=== PATIENT | male | born 1935 | race Caucasian/White ===

== ENCOUNTER 2016-07-01 10:51 | Outpatient (CLI) | payer MEDICARE, OTHER | END 2016-07-01 10:52 | disposition home or self-care (01) | DX: G47.33 Obstructive sleep apnea (adult) (pediatric) (principal) | CPT/HCPCS: 99214; G0463 ==

== ENCOUNTER 2016-09-02 08:56 | Outpatient (CLI) | payer MEDICARE, OTHER | END 2016-09-02 08:57 | disposition home or self-care (01) | LOC: SC 08:56 | PROVIDERS: ATTEND Nurse Practitioner Family | DX: G47.33 Obstructive sleep apnea (adult) (pediatric) (principal) | CPT/HCPCS: 99214; G0463; 99212 ==

== ENCOUNTER 2016-11-03 08:50 | Outpatient (CLI) | payer MEDICARE, OTHER | END 2016-11-03 08:51 | disposition home or self-care (01) | LOC: SC 08:50 | PROVIDERS: ATTEND Nurse Practitioner Family | DX: G47.33 Obstructive sleep apnea (adult) (pediatric) (principal) | CPT/HCPCS: 99214; G0463; 99212 ==

== ENCOUNTER 2017-01-13 10:50 | Outpatient (CLI) | payer MEDICARE, OTHER ==
[~2017-01-13 10:50] MED LIST: IOPAMIDOL-300 100 ML VIAL ONE
[2017-01-13] MEDS ORDERED: IOPAMIDOL-300 100 ML VIAL IVP ONE (12:03)
--- NOTE | 2017-01-14 09:56 | CT Report ---
ABDOMEN CT: 01/13/2017 COMPARISON: None. INDICATION: Unspecified hematuria. TECHNIQUE: Multiphase axial imaging of the abdomen at 5 mm using 100 mL Isovue-300. No oral contras t. Coronal and sagittal reformats. FINDINGS: Cardiac pacing leads are noted. There are atherosclerotic calcifications of the aorta and coronary arteries. There is mild dependent atelectasis at the lung bases. The liver is normal in contour without masses. The spleen, pancreas, and adrenal glands are unremark able. There are multiple colon diverticula without evidence of diverticulitis. The appendix appears grossl y unremarkable. There is an exophytic cyst at the superior right kidney, simple appearing and measures 4.3 cm. No urologic stones are demonstrated. There are a few other low-attenuating foci in the kidneys, too small to characterize. No filling defects are seen on delayed excretory images. Left hip prosthesis is noted. No bone lesions are seen. Soft tissues appear grossly unremarkable in other regards. IMPRESSION: THERE ARE NO CT FINDINGS TO SUGGEST A CAUSE OF HEMATURIA. In accordance with CT protocol optimization, one or more of the following dose reduction techniques w ere utilized for this exam: automated exposure control, adjustment of mA and/or KV based on patient size, or use of iterative reconstructive technique. JOB #: [id number] EXT JOB #:[id number]
== END 2017-01-13 10:51 | disposition home or self-care (01) ==
LOC: DI 10:50
PROVIDERS: ATTEND Family Medicine
DX: R31.9 Hematuria, unspecified (principal); Z95.0 Presence of cardiac pacemaker
CPT/HCPCS: 74178; Q9967

== ENCOUNTER 2017-07-28 15:27 | Outpatient (CLI) | payer MEDICARE, OTHER | END 2017-07-28 15:28 | disposition home or self-care (01) | LOC: SC 15:27 | PROVIDERS: ATTEND Nurse Practitioner Family | DX: G47.33 Obstructive sleep apnea (adult) (pediatric) (principal) | CPT/HCPCS: 99214; G0463; 99212 ==

== ENCOUNTER 2017-09-29 08:46 | Outpatient (CLI) | payer MEDICARE, OTHER | END 2017-09-29 08:47 | disposition home or self-care (01) | LOC: SC 08:46 | PROVIDERS: ATTEND Nurse Practitioner Family | DX: G47.33 Obstructive sleep apnea (adult) (pediatric) (principal) | CPT/HCPCS: 99214; G0463; 99212 ==

== ENCOUNTER → 2018-01-26 | Outpatient (CLI) | payer MEDICARE, OTHER ==
[2018-01-26 12:24] LABS: BASOPHILS # (AUTO) 0.1 10^3/uL (0.0-0.1); EOSINOPHILS # (AUTO) 0.1 10^3/uL (0.0-0.7); EOSINOPHILS % (AUTO) 2.2 %; HGB - HEMOGLOBIN 16.3 g/dL (14.0-18.0); LYMPHOCYTES # (AUTO) 1.8 10^3/uL (1.5-3.5); LYMPHOCYTES % (AUTO) 30.6 %; MEAN CORPUSCULAR HEMOGLOBIN 32.9 pg (27.0-31.0); MEAN CORPUSCULAR HGB CONC 34.7 g/dL (32.0-36.0); MEAN CORPUSCULAR VOLUME 94.8 fL (80.0-94.0); MEAN PLATELET VOLUME 10.4 fL (7.4-11.4); MONOCYTES # (AUTO) 0.5 10^3/uL (0.0-1.0); MONOCYTES % (AUTO) 8.6 %; NEUTROPHILS # (AUTO) 3.3 10^3/uL (1.5-6.6); NEUTROPHILS % (AUTO) 57.6 %; PLT - PLATELET COUNT 241 10^3/uL (130-450); RED BLOOD COUNT 4.95 10^6/uL (4.70-6.10); RED CELL DISTRIBUTION WIDTH 13.1 % (12.0-15.0); WHITE BLOOD COUNT 5.8 x10^3/uL (4.8-10.8)
[2018-01-26 12:51] LABS: ALBUMIN 4.2 g/dL (3.2-5.5); ALBUMIN/GLOBULIN RATIO 1.4 (1.0-2.2); ALKALINE PHOSPHATASE 70 IU/L (42-121); ALT ALANINE AMINOTRANSFERASE 35 IU/L (10-60); AST ASPARTATE AMINOTRANSFERASE 24 IU/L (10-42); BILIRUBIN,TOTAL 0.7 mg/dL (0.2-1.0); BUN - BLOOD UREA NITROGEN 16 mg/dL (6-20); CALCIUM 9.7 mg/dL (8.5-10.3); CARBON DIOXIDE - CO2 29 mmol/L (21-32); CHLORIDE 100 mmol/L (101-111); CHOL/HDL RATIO 8.4 (<5.0); CHOLESTEROL 251 mg/dL; GFR - MDRD 72 (>89); GLUCOSE 111 mg/dL (70-100); HDL CHOLESTEROL 30 mg/dL; LDL CHOLESTEROL,CALCULATED 149 mg/dL; SODIUM 136 mmol/L (135-145); TOTAL PROTEIN 7.1 g/dL (6.7-8.2); VLDL CHOLESTEROL 72 mg/dL
== END ==
LOC: LAB.WCP 07:02
PROVIDERS: ATTEND Family Medicine
DX: I10 Essential (primary) hypertension (principal); E78.5 Hyperlipidemia, unspecified
CPT/HCPCS: 36415; 80053; 80061; 83721; 85025

== ENCOUNTER → 2018-02-03 | Outpatient (CLI) | payer MEDICARE, OTHER ==
[2018-02-03 13:00] LABS: INR 1.1 (0.8-1.2); PT - PROTHROMBIN TIME 12.8 secs (9.9-12.6)
[2018-02-03 13:18] LABS: CHOL/HDL RATIO 6.8 (<5.0); CHOLESTEROL 224 mg/dL; HDL CHOLESTEROL 33 mg/dL; LDL CHOLESTEROL,CALCULATED 142 mg/dL; LDL/HDL RATIO 4.3 (<3.6); VLDL CHOLESTEROL 49 mg/dL
== END ==
LOC: LAB.WCP 07:17
PROVIDERS: ATTEND Family Medicine
DX: I48.0 Paroxysmal atrial fibrillation (principal); Z79.01 Long term (current) use of anticoagulants; E78.5 Hyperlipidemia, unspecified
CPT/HCPCS: 36415; 80061; 83721; 85610

== ENCOUNTER 2018-03-04 08:00 | Outpatient (CLI) | payer MEDICARE, OTHER ==
[2018-03-04 13:45] LABS: CHOL/HDL RATIO 4.3 (<5.0); CHOLESTEROL 145 mg/dL; HDL CHOLESTEROL 34 mg/dL; LDL CHOLESTEROL,CALCULATED 76 mg/dL; LDL/HDL RATIO 2.2 (<3.6); VLDL CHOLESTEROL 35 mg/dL
== END 2018-03-04 23:59 ==
LOC: LAB.WCP 08:00
PROVIDERS: ATTEND Family Medicine
DX: E78.5 Hyperlipidemia, unspecified (principal)
CPT/HCPCS: 36415; 80061; 83721

== ENCOUNTER 2018-09-16 08:00 | Outpatient (CLI) | payer MEDICARE, OTHER | END 2018-09-16 08:01 | disposition home or self-care (01) | LOC: LAB.WCP 08:00 | PROVIDERS: ATTEND Family Medicine | DX: I48.0 Paroxysmal atrial fibrillation (principal); Z79.01 Long term (current) use of anticoagulants ==

== ENCOUNTER 2018-09-30 08:00 | Outpatient (CLI) | payer MEDICARE, OTHER | END 2018-09-30 08:01 | disposition home or self-care (01) | LOC: LAB.WCP 08:00 | PROVIDERS: ATTEND Family Medicine | DX: I48.0 Paroxysmal atrial fibrillation (principal); Z79.01 Long term (current) use of anticoagulants ==

== ENCOUNTER 2018-10-14 08:00 | Outpatient (CLI) | payer MEDICARE, OTHER | END 2018-10-14 08:01 | disposition home or self-care (01) | LOC: LAB.WCP 08:00 | PROVIDERS: ATTEND Family Medicine | DX: I48.0 Paroxysmal atrial fibrillation (principal); Z79.01 Long term (current) use of anticoagulants ==

== ENCOUNTER 2018-11-11 08:00 | Outpatient (CLI) | payer MEDICARE, OTHER | END 2018-11-11 23:59 | disposition home or self-care (01) | LOC: LAB.WCP 08:00 | PROVIDERS: ATTEND Family Medicine | DX: I48.0 Paroxysmal atrial fibrillation (principal); Z79.01 Long term (current) use of anticoagulants ==

== ENCOUNTER 2018-11-29 09:48 | Outpatient (CLI) | payer MEDICARE, OTHER ==
--- NOTE | 2018-11-29 10:27 | SLEEP CARE CONSULTATION ---
Information from patient questionnaire entered by Amairani Salamanca. I have reviewed and concur with the information entered by Amairani Salamanca. This document represents the service I personally performed and the decisions made by me, Dung Daniels MD, [facility]. History of Present Illness Previous diagnosis: Moderate, Obstructive Sleep Apnea-Hypopnea Syndrome AHI: 27.5 Reason for CPAP/BiPAP follow up: annual Equipment type: CPAP Equipment obtained from: [employer] Prior sleep studies: Yes Year and Where: 2015 [facility]EP [facility] HPI additional information: HPI: Mr. Renner returned today for annual follow up of nasal CPAP therapy. He was diagnosed to have moderate obstructive sleep apnea-hypopnea syndrome. The patient wears nasal pillows and likes them. He reports using the device nightly and all through the night. The compliance report shows usage in 179 nights out of the past 180 nights, averaging 7.1 hours a night. He complained of no particular problem with the device such as soreness on the face, dry nose, epistaxis, nasal congestion or headache. He thinks that the pressure of 8 11 cmH2O is comfortable. On the CPAP therapy he notices improvement in his sleep quality, and that he wakes up feeling fresher in the morning and more awake/alert during the day. His notices no snore at all. The average residual AHI is 7.4; and average time in large leak per day is 2 hours. The 90th percentile pressure is 9.2 cmH2O. CPAP Compliance Data - Data Reviewed with Patient Average duration of nightly device use: 7H 7M Compliance rate %: 99.4 Current pressure setting (cmH2O): 8-11 Humidity settin Heated hose settin Subjective Current pressure setting perceived as: comfortable Initial [place] Sleepiness Scale score: 15 Current [place] Sleepiness Scale score: 10 Allergies and Home Medications Drug allergies reviewed: Yes Home medication list reviewed: Yes Review of Systems Review of systems same as previous: Yes Impression and Plan IMPRESSION: 1. Obstructive Sleep Apnea-Hypopnea Syndrome, moderate, with the patient doing well on nasal CPAP therapy. He has excellent compliance and significant clinical improvement. The current pressure appears slightly ineffective but comfortable. Overall, he is very satisfied with treatment and plans to continue with it long-term. The high air leak most likely is through his mouth. The patient does not want to wear a full face mask. PLAN: 1. Continue with autoCPAP set between 8 - 11 cmH2O. 2. Try the new ResMed N30i mask. 4. Return in one year for follow up or earlier if there is any problem with the treatment. I spent 100% of this 15 minute visit face to face with the patient with greater than 50% of this was spent time counseling the patient and coordination of care.
== END 2018-11-29 09:49 | disposition home or self-care (01) ==
LOC: SC 09:48
PROVIDERS: ATTEND Internal Medicine Pulmonary Disease
DX: G47.33 Obstructive sleep apnea (adult) (pediatric) (principal)
CPT/HCPCS: 99213; G0463; 99212

== ENCOUNTER 2018-12-09 08:00 | Outpatient (CLI) | payer MEDICARE, OTHER | END 2018-12-09 23:59 | disposition home or self-care (01) | LOC: LAB.WCP 08:00 | PROVIDERS: ATTEND Family Medicine | DX: I48.0 Paroxysmal atrial fibrillation (principal); Z79.01 Long term (current) use of anticoagulants ==

== ENCOUNTER 2019-01-07 08:00 | Outpatient (CLI) | payer MEDICARE, OTHER | END 2019-01-07 23:59 | disposition home or self-care (01) | LOC: LAB.WCP 08:00 | PROVIDERS: ATTEND Family Medicine | DX: Z79.01 Long term (current) use of anticoagulants (principal); I48.0 Paroxysmal atrial fibrillation ==

== ENCOUNTER 2019-02-04 08:00 | Outpatient (CLI) | payer MEDICARE, OTHER | END 2019-02-04 23:59 | disposition home or self-care (01) | LOC: LAB.WCP 08:00 | PROVIDERS: ATTEND Family Medicine | DX: Z79.01 Long term (current) use of anticoagulants (principal); I48.0 Paroxysmal atrial fibrillation ==

== ENCOUNTER 2019-03-04 08:00 | Outpatient (CLI) | payer MEDICARE, OTHER | END 2019-03-04 23:59 | disposition home or self-care (01) | LOC: LAB.WCP 08:00 | PROVIDERS: ATTEND Family Medicine | DX: Z79.01 Long term (current) use of anticoagulants (principal); I48.0 Paroxysmal atrial fibrillation ==

== ENCOUNTER 2019-07-11 08:00 | Outpatient (CLI) | payer MEDICARE, OTHER | END 2019-07-11 23:59 | disposition home or self-care (01) | LOC: LAB.WCP 08:00 | PROVIDERS: ATTEND Family Medicine | DX: I48.0 Paroxysmal atrial fibrillation (principal); Z79.01 Long term (current) use of anticoagulants ==

== ENCOUNTER 2019-07-18 08:00 | Outpatient (CLI) | payer MEDICARE, OTHER | END 2019-07-18 23:59 | disposition home or self-care (01) | LOC: LAB.WCP 08:00 | PROVIDERS: ATTEND Family Medicine | DX: I48.0 Paroxysmal atrial fibrillation (principal); Z79.01 Long term (current) use of anticoagulants ==

== ENCOUNTER 2019-07-26 08:00 | Outpatient (CLI) | payer MEDICARE, OTHER | END 2019-07-26 23:59 | disposition home or self-care (01) | LOC: LAB.WCP 08:00 | PROVIDERS: ATTEND Family Medicine | DX: I48.0 Paroxysmal atrial fibrillation (principal); Z79.01 Long term (current) use of anticoagulants ==

== ENCOUNTER 2019-08-08 14:40 | Outpatient (CLI) | payer MEDICARE, OTHER ==
[2019-08-08 18:01] LABS: CALCIUM 9.6 mg/dL (8.5-10.3); CREATININE 1.1 mg/dL (0.6-1.2); MAGNESIUM 2.2 mg/dL (1.7-2.8)
== END 2019-08-08 23:59 | disposition home or self-care (01) ==
LOC: LAB.WCP 14:40
PROVIDERS: ATTEND Physician Assistant
DX: I48.0 Paroxysmal atrial fibrillation (principal)
CPT/HCPCS: 36415; 80048; 83735

== ENCOUNTER 2019-08-10 08:00 | Outpatient (CLI) | payer MEDICARE, OTHER | END 2019-08-10 23:59 | disposition home or self-care (01) | LOC: LAB.WCP 08:00 | PROVIDERS: ATTEND Family Medicine | DX: I48.0 Paroxysmal atrial fibrillation (principal); Z79.01 Long term (current) use of anticoagulants ==

== ENCOUNTER 2019-08-17 08:00 | Outpatient (CLI) | payer MEDICARE, OTHER | END 2019-08-17 23:59 | disposition home or self-care (01) | LOC: LAB.WCP 08:00 | PROVIDERS: ATTEND Family Medicine | DX: I48.0 Paroxysmal atrial fibrillation (principal); Z79.01 Long term (current) use of anticoagulants ==

== ENCOUNTER 2019-08-26 08:00 | Outpatient (CLI) | payer MEDICARE, OTHER | END 2019-08-26 23:59 | disposition home or self-care (01) | LOC: LAB.WCP 08:00 | PROVIDERS: ATTEND Family Medicine | DX: I48.0 Paroxysmal atrial fibrillation (principal); Z79.01 Long term (current) use of anticoagulants ==

== ENCOUNTER 2019-09-09 08:00 | Outpatient (CLI) | payer MEDICARE, OTHER | END 2019-09-09 23:59 | disposition home or self-care (01) | LOC: LAB.WCP 08:00 | PROVIDERS: ATTEND Family Medicine | DX: I48.0 Paroxysmal atrial fibrillation (principal); Z79.01 Long term (current) use of anticoagulants ==

== ENCOUNTER 2019-09-26 08:00 | Outpatient (CLI) | payer MEDICARE, OTHER | END 2019-09-26 23:59 | disposition home or self-care (01) | LOC: LAB.WCP 08:00 | PROVIDERS: ATTEND Family Medicine | DX: I48.0 Paroxysmal atrial fibrillation (principal); Z79.01 Long term (current) use of anticoagulants ==

== ENCOUNTER 2019-10-03 08:00 | Outpatient (CLI) | payer MEDICARE, OTHER | END 2019-10-03 23:59 | disposition home or self-care (01) | LOC: LAB.WCP 08:00 | PROVIDERS: ATTEND Family Medicine | DX: I48.0 Paroxysmal atrial fibrillation (principal); Z79.01 Long term (current) use of anticoagulants ==

== ENCOUNTER 2019-10-10 08:00 | Outpatient (CLI) | payer MEDICARE, OTHER ==
[2019-10-10 12:12] LABS: BASOPHILS # (AUTO) 0.1 10^3/uL (0.0-0.1); BASOPHILS % (AUTO) 0.7 %; EOSINOPHILS # (AUTO) 0.1 10^3/uL (0.0-0.7); EOSINOPHILS % (AUTO) 1.4 %; HGB - HEMOGLOBIN 15.7 g/dL (14.0-18.0); LYMPHOCYTES # (AUTO) 1.7 10^3/uL (1.5-3.5); LYMPHOCYTES % (AUTO) 23.3 %; MEAN CORPUSCULAR HEMOGLOBIN 31.3 pg (27.0-31.0); MEAN CORPUSCULAR HGB CONC 32.1 g/dL (32.0-36.0); MEAN CORPUSCULAR VOLUME 97.6 fL (80.0-94.0); MONOCYTES # (AUTO) 0.6 10^3/uL (0.0-1.0); MONOCYTES % (AUTO) 7.8 %; NEUTROPHILS # (AUTO) 4.7 10^3/uL (1.5-6.6); NEUTROPHILS % (AUTO) 66.5 %; PLT - PLATELET COUNT 225 10^3/uL (130-450); RED BLOOD COUNT 5.01 10^6/uL (4.70-6.10); RED CELL DISTRIBUTION WIDTH 12.7 % (12.0-15.0); WHITE BLOOD COUNT 7.1 x10^3/uL (4.8-10.8)
[2019-10-10 12:39] LABS: ALBUMIN 4.2 g/dL (3.2-5.5); ALBUMIN/GLOBULIN RATIO 1.2 (1.0-2.2); ALKALINE PHOSPHATASE 57 IU/L (42-121); ALT ALANINE AMINOTRANSFERASE 39 IU/L (10-60); AST ASPARTATE AMINOTRANSFERASE 28 IU/L (10-42); BILIRUBIN,TOTAL 1.1 mg/dL (0.2-1.0); BUN - BLOOD UREA NITROGEN 22 mg/dL (6-20); CALCIUM 10.1 mg/dL (8.5-10.3); CARBON DIOXIDE - CO2 30 mmol/L (21-32); CHLORIDE 102 mmol/L (101-111); CHOL/HDL RATIO 4.2 (<5.0); CHOLESTEROL 147 mg/dL; GLUCOSE 114 mg/dL (70-100); HDL CHOLESTEROL 35 mg/dL; LDL CHOLESTEROL,CALCULATED 85 mg/dL; LDL/HDL RATIO 2.4 (<3.6); SODIUM 138 mmol/L (135-145); TOTAL PROTEIN 7.7 g/dL (6.7-8.2); VLDL CHOLESTEROL 27 mg/dL
[2019-10-10 12:45] LABS: HB2 TOTAL 17.6 g/dL; HEMOGLOBIN A1C 0.72 g/dL; HEMOGLOBIN A1C % 5.9 % (4.6-6.2)
== END 2019-10-10 23:59 | disposition home or self-care (01) ==
LOC: LAB.WCP 08:00
PROVIDERS: ATTEND Family Medicine
DX: I48.0 Paroxysmal atrial fibrillation (principal); R73.01 Impaired fasting glucose; E78.5 Hyperlipidemia, unspecified
CPT/HCPCS: 36415; 80053; 80061; 83036; 83721; 85025

== ENCOUNTER 2019-11-08 08:00 | Outpatient (CLI) | payer MEDICARE, OTHER | END 2019-11-08 23:59 | disposition home or self-care (01) | LOC: LAB.WCP 08:00 | PROVIDERS: ATTEND Family Medicine | DX: I48.0 Paroxysmal atrial fibrillation (principal); Z79.01 Long term (current) use of anticoagulants ==

== ENCOUNTER 2019-12-06 08:00 | Outpatient (CLI) | payer MEDICARE, OTHER | END 2019-12-06 23:59 | disposition home or self-care (01) | LOC: LAB.WCP 08:00 | PROVIDERS: ATTEND Family Medicine | DX: Z79.01 Long term (current) use of anticoagulants (principal) ==

== ENCOUNTER 2019-12-08 09:49 | Outpatient (CLI) | payer MEDICARE, OTHER ==
--- NOTE | 2019-12-08 10:28 | SLEEP CARE CONSULTATION ---
Information from patient questionnaire entered by Chaya Brito. I have reviewed and concur with the information entered by Chaya Brito. This document represents the service I personally performed and the decisions made by , Katia Bess ARNP. History of Present Illness Service Date and Time: 12/08/2019 0949 Previous diagnosis: Moderate, Obstructive Sleep Apnea-Hypopnea Syndrome AHI: 27.5 (in 2016) Reason for follow up: annual (last seen 2019) Equipment type: CPAP Equipment obtained from: [employer] (getting supplies as needed) Mask style: Nasal Backup mask available: Yes (old mask) Last cushion change: 1 month Prior sleep studies: Yes Year and Where: 2016 - [facility] Sleep Type of Sleep Study: Polysomnography HPI additional information: SHAHRIAR PEREZ was diagnosed to have moderate, AHI 27.5, obstructive sleep apnea-hypopnea syndrome and returned today for CPAP therapy annual follow-up. Sleep Study - Results Prior sleep studies: Yes Year and Where: 2015 [facility]EP [facility] CPAP Compliance Data - Data Reviewed with Patient Average duration of nightly device use: 7.1 Compliance rate %: 100 (180 days) Current pressure setting (cmH2O): 8-11 Humidity settin Heated hose settin Average residual AHI: 11.9 Average large leak: 2 hr 56 min 50 sec Compliance data discussion: Patient does have an elevated residual AHI with large air leaks and complaint of dry mouth. Patient is a mouth breather. He also has claustrophobia and does not want to try a full face mask. He is willing to try a chin strap to try to keep mouth closed to reduce dryness and large air leaks. Subjective Patient concerns: reports: dry mouth, nose, throat (dry mouth daily; he is a mouth breather). denies: aerophagia, mask discomfort, air blowing in eyes, mask leak noise, condensation in mask/hose, nasal congestion, epistaxis, other Observed to snore while using device: No Current pressure setting perceived as: comfortable On therapy, patient: reports: sleeping better, awakening more refreshed, being more awake and alert during the day, more rested overall. denies: drowsiness while driving Initial [place] Sleepiness Scale score: 14 (in 2016) Current [place] Sleepiness Scale score: 9 Allergies and Home Medications Drug allergies reviewed: Yes (Aleakil) Home medication list reviewed: Yes (no changes) Review of Systems Review of systems same as previous: Yes (no changes) Physical Exam Heart Rate: 63 O2 Saturation: 97 Height: 5 ft 10 in Weight: 196 lb Body Mass Index: 28.1 BMI Classification: Overweight Impression and Plan 1. Obstructive Sleep Apnea-Hypopnea Syndrome, moderate, with great treatment compliance and poor apnea control. On CPAP therapy, the patient has better sleep quality and is more rested overall. Patient has issue with oral dryness due to mouth breathing. I advised patient that oral dryness can also be reduced by reducing mask leaks. His humidity is set at 5 and his heated hose at 2, probably not contributing to his dry mouth. Patient advised to try a chin strap to help to close his mouth while using the CPAP to reduce air leaks and oral dryness. This may also help improve his residual AHI. Patient advised that chronic oral dryness can affect dental health and advised to follow up with dentist. In addition, there are oral dryness products that can be used to reduce dryness such as Biotene products, Dry mouth rinse and Xylomelts. Patient to discuss best option with dentist. Patient's apnea severity and rationale for treatment to reduce apnea, improve sleep quality and reduce cardiovascular and cerebrovascular events was reviewed. I also reviewed the benefit of consistent device use of CPAP for his arrhythmia. * Try chin strap to reduce mouth dryness and large air leaks * Changeauto CPAP pressure to 9-11 cmH2O * Consult with dentist on best treatment option to reduce oral dryness * Notify me if snoring with mask or feeling that the pressure is too much or too little * Attempt to lose weight * Call this office if any problems using CPAP * Return for follow up in 1 year, or sooner if concerns arise Visit Type: In Office Time Spent with Patient (minutes): 21 Provider Statement: I spent 100% of the Face to Face Visit with the patient with greater than 50% spent counseling the patient and coordination of care.
== END 2019-12-08 09:50 | disposition home or self-care (01) ==
LOC: SC 09:49
PROVIDERS: ATTEND Nurse Practitioner Family
DX: G47.33 Obstructive sleep apnea (adult) (pediatric) (principal); E66.3 Overweight; Z68.28 Body mass index [BMI] 28.0-28.9, adult
CPT/HCPCS: 99213; G0463; 99212

== ENCOUNTER 2019-12-30 08:00 | Outpatient (CLI) | payer MEDICARE, OTHER | END 2019-12-30 23:59 | disposition home or self-care (01) | LOC: LAB.WCP 08:00 | PROVIDERS: ATTEND Family Medicine | DX: Z79.01 Long term (current) use of anticoagulants (principal) ==

== ENCOUNTER 2020-01-23 08:00 | Outpatient (CLI) | payer MEDICARE, OTHER | END 2020-01-23 23:59 | disposition home or self-care (01) | LOC: LAB.WCP 08:00 | PROVIDERS: ATTEND Family Medicine | DX: Z79.01 Long term (current) use of anticoagulants (principal) ==

== ENCOUNTER 2020-02-20 08:00 | Outpatient (CLI) | payer MEDICARE, OTHER | END 2020-02-20 23:59 | disposition home or self-care (01) | LOC: LAB.WCP 08:00 | PROVIDERS: ATTEND Family Medicine | DX: Z79.01 Long term (current) use of anticoagulants (principal) ==

== ENCOUNTER 2020-04-23 08:00 | Outpatient (CLI) | payer MEDICARE, OTHER | END 2020-04-23 23:59 | disposition home or self-care (01) | LOC: LAB.N 08:00 | PROVIDERS: ATTEND Family Medicine | DX: Z79.01 Long term (current) use of anticoagulants (principal) ==

== ENCOUNTER 2020-05-03 07:55 | Outpatient (CLI) | payer MEDICARE, OTHER ==
[2020-05-03 11:59] LABS: BASOPHILS # (AUTO) 0.1 10^3/uL (0.0-0.1); EOSINOPHILS # (AUTO) 0.2 10^3/uL (0.0-0.7); EOSINOPHILS % (AUTO) 3.3 %; HGB - HEMOGLOBIN 15.8 g/dL (14.0-18.0); LYMPHOCYTES # (AUTO) 1.5 10^3/uL (1.5-3.5); LYMPHOCYTES % (AUTO) 21.1 %; MEAN CORPUSCULAR HGB CONC 31.5 g/dL (32.0-36.0); MEAN CORPUSCULAR VOLUME 98.4 fL (80.0-94.0); MEAN PLATELET VOLUME 11.3 fL (7.4-11.4); MONOCYTES # (AUTO) 0.7 10^3/uL (0.0-1.0); MONOCYTES % (AUTO) 9.6 %; NEUTROPHILS # (AUTO) 4.6 10^3/uL (1.5-6.6); NEUTROPHILS % (AUTO) 64.7 %; PLT - PLATELET COUNT 281 10^3/uL (130-450); RED BLOOD COUNT 5.09 10^6/uL (4.70-6.10); RED CELL DISTRIBUTION WIDTH 12.4 % (12.0-15.0); WHITE BLOOD COUNT 7.1 x10^3/uL (4.8-10.8)
[2020-05-03 12:24] LABS: INR 2.8 (0.8-1.2)
[2020-05-03 12:29] LABS: HEMOGLOBIN A1c% 6.1 % (4.27-6.07)
[2020-05-03 12:37] LABS: ALBUMIN 4.2 g/dL (3.2-5.5); ALBUMIN/GLOBULIN RATIO 1.4 (1.0-2.2); ALKALINE PHOSPHATASE 66 IU/L (42-121); ALT ALANINE AMINOTRANSFERASE 36 IU/L (10-60); AST ASPARTATE AMINOTRANSFERASE 22 IU/L (10-42); BILIRUBIN,TOTAL 0.7 mg/dL (0.2-1.0); BUN - BLOOD UREA NITROGEN 19 mg/dL (6-20); CARBON DIOXIDE - CO2 30 mmol/L (21-32); CHLORIDE 101 mmol/L (101-111); CHOLESTEROL 190 mg/dL; GLUCOSE 121 mg/dL (70-100); HDL CHOLESTEROL 38 mg/dL; LDL CHOLESTEROL,CALCULATED 112 mg/dL; LDL/HDL RATIO 2.9 (<3.6); MAGNESIUM 2.2 mg/dL (1.7-2.8); TOTAL PROTEIN 7.1 g/dL (6.7-8.2); VLDL CHOLESTEROL 40 mg/dL
== END 2020-05-03 23:59 | disposition home or self-care (01) ==
LOC: LAB.WCP 07:55
PROVIDERS: ATTEND Family Medicine
DX: R73.01 Impaired fasting glucose (principal); I48.0 Paroxysmal atrial fibrillation; E78.5 Hyperlipidemia, unspecified; Z79.01 Long term (current) use of anticoagulants
CPT/HCPCS: 36415; 80053; 80061; 83036; 83721; 83735; 84443; 85025; 85610

== ENCOUNTER 2020-06-29 08:00 | Outpatient (CLI) | payer MEDICARE, OTHER | END 2020-06-29 23:59 | disposition home or self-care (01) | LOC: LAB.N 08:00 | PROVIDERS: ATTEND Family Medicine | DX: I48.0 Paroxysmal atrial fibrillation (principal); Z79.01 Long term (current) use of anticoagulants ==

== ENCOUNTER 2020-07-13 08:00 | Outpatient (CLI) | payer MEDICARE, OTHER | END 2020-07-13 23:59 | disposition home or self-care (01) | LOC: LAB.N 08:00 | PROVIDERS: ATTEND Family Medicine | DX: I48.0 Paroxysmal atrial fibrillation (principal); Z79.01 Long term (current) use of anticoagulants ==

== ENCOUNTER 2020-07-20 08:00 | Outpatient (CLI) | payer MEDICARE, OTHER ==
[2020-07-20 18:30] LABS: CALCIUM 9.5 mg/dL (8.5-10.3); MAGNESIUM 2.2 mg/dL (1.7-2.8); POTASSIUM 4.2 mmol/L (3.5-5.0)
== END 2020-07-20 23:59 | disposition home or self-care (01) ==
LOC: LAB.WCP 08:00
PROVIDERS: ATTEND Physician Assistant Medical
DX: I48.0 Paroxysmal atrial fibrillation (principal)
CPT/HCPCS: 36415; 80048; 83735

== ENCOUNTER 2020-08-10 08:00 | Outpatient (CLI) | payer MEDICARE, OTHER | END 2020-08-10 23:59 | disposition home or self-care (01) | LOC: LAB.N 08:00 | PROVIDERS: ATTEND Family Medicine | DX: Z79.01 Long term (current) use of anticoagulants (principal); I48.0 Paroxysmal atrial fibrillation ==

== ENCOUNTER 2020-08-31 08:00 | Outpatient (CLI) | payer MEDICARE, OTHER | END 2020-08-31 23:59 | disposition home or self-care (01) | LOC: LAB.N 08:00 | PROVIDERS: ATTEND Family Medicine | DX: I48.0 Paroxysmal atrial fibrillation (principal); Z79.01 Long term (current) use of anticoagulants ==

== ENCOUNTER 2020-09-19 08:00 | Outpatient (CLI) | payer MEDICARE, OTHER | END 2020-09-19 23:59 | disposition home or self-care (01) | LOC: LAB.N 08:00 | PROVIDERS: ATTEND Family Medicine | DX: Z79.01 Long term (current) use of anticoagulants (principal); I48.0 Paroxysmal atrial fibrillation ==

== ENCOUNTER 2020-10-17 08:00 | Outpatient (CLI) | payer MEDICARE, OTHER | END 2020-10-17 23:59 | disposition home or self-care (01) | LOC: LAB.WCP 08:00 | PROVIDERS: ATTEND Family Medicine | DX: I48.0 Paroxysmal atrial fibrillation (principal); Z79.01 Long term (current) use of anticoagulants ==

== ENCOUNTER 2020-10-26 08:00 | Outpatient (CLI) | payer MEDICARE, OTHER | END 2020-10-26 23:59 | disposition home or self-care (01) | LOC: LAB.N 08:00 | PROVIDERS: ATTEND Family Medicine | DX: I48.0 Paroxysmal atrial fibrillation (principal); Z79.01 Long term (current) use of anticoagulants ==

== ENCOUNTER 2020-11-23 08:00 | Outpatient (CLI) | payer MEDICARE, OTHER | END 2020-11-23 23:59 | disposition home or self-care (01) | LOC: LAB.WCP 08:00 | PROVIDERS: ATTEND Family Medicine | DX: Z79.01 Long term (current) use of anticoagulants (principal); I48.0 Paroxysmal atrial fibrillation ==

== ENCOUNTER 2020-12-06 08:12 | Outpatient (CLI) | payer MEDICARE, OTHER ==
--- NOTE | 2020-12-06 08:46 | SLEEP CARE CONSULTATION ---
Information from patient questionnaire entered by Chaya Brito. I have reviewed and concur with the information entered by Chaya Brito. This document represents the service I personally performed and the decisions made by , Katia Bess ARNP. History of Present Illness Service Date and Time: 12/06/2020 0812 Previous diagnosis: Moderate, Obstructive Sleep Apnea-Hypopnea Syndrome AHI: 27.5 (in 2015) Reason for follow up: annual (last seen 11/2019) Equipment type: CPAP Equipment obtained from: [employer] (getting supplies as needed) Mask style: Nasal Mask brand: Respironics (Dreamwear) Backup mask available: No (will keep old mask when replaced) Last cushion change: 1 month Prior sleep studies: Yes Year and Where: [address] - [facility] Sleep Type of Sleep Study: Polysomnography HPI additional information: SHAHRIAR PEREZ was diagnosed to have moderate, AHI 27.5, obstructive sleep apnea-hypopnea syndrome and returned today for CPAP therapy annual follow-up. CPAP Compliance Data - Data Reviewed with Patient Average duration of nightly device use: 7 hr 5 min Compliance rate %: 99.4 (180 days) Current pressure setting (cmH2O): 9-11 (mean 9.2, 90% avg 10.0, max 10.5) Humidity settin Heated hose settin Average residual AHI: 11 Average large leak: 3 hr 53 min Subjective Patient concerns: reports: dry mouth, nose, throat (throat; he states he is a mouth breather, even in daytime and always dry). denies: aerophagia, mask discomfort, air blowing in eyes, mask leak noise, condensation in mask/hose, nasal congestion, epistaxis, other Observed to snore while using device: No Current pressure setting perceived as: comfortable On therapy, patient: reports: sleeping better, awakening more refreshed, being more awake and alert during the day, more rested overall. denies: drowsiness while driving Initial [place] Sleepiness Scale score: 14 (in 2016) Current [place] Sleepiness Scale score: 9 Allergies and Home Medications Home medication list reviewed: Yes (no changes) Review of Systems Review of systems same as previous: Yes (no changes) Physical Exam Heart Rate: 65 O2 Saturation: 96 Height: 5 ft 11 in Weight: 204 lb Body Mass Index: 28.4 BMI Classification: Overweight Impression and Plan 1. Obstructive Sleep Apnea-Hypopnea Syndrome, moderate, with good treatment compliance and fair apnea control with elevated residual AHI. On CPAP therapy, the patient has better sleep quality and is more rested overall. Patient appears to have an elevated AHI but these are mostly attributed to hypopneas. Patient has a large leak over 3 hours which is probably affecting this number. He is otherwise very well controlled and pressure needs reflect this. I informed the patient that [employer] has a recall on several devices like the patients machine. Patient was encouraged to register their device online with [employer] for the recall to see if their device is affected. If their device is affected they should start a claim. Patient denies any black particles seen in machine or hoses, any unusual odors coming from device. Patient has not experienced any physical symptoms such as upper airway irritation, headache, skin or eye irritation, asthma, nausea/vomiting, difficulty breathing or chest pain. Patient informed that they may use an inline CPAP filter that they can obtain online to reduce chance of any particles being inhaled or ingested. We discussed thoroughly the health risks of not using the CPAP versus continuing use with the filter in place. If patient is not able to sleep due to waking up choking, gasping for air or other respiratory distress that they may decide to continue using it until it is either replaced or repaired. Since the patients current machine is at least 5 years old the patient is opting to update their device with a device that is not on the recall. Patient voiced understanding and agreement with plan. Patient's apnea severity and rationale for treatment to reduce apnea, improve sleep quality and reduce cardiovascular and cerebrovascular events was reviewed. I also reviewed the benefit of consistent device use of CPAP for arrhythmia. Patient was encouraged to lose weight for their overall health and to reduce apneas. * Continue auto CPAP pressure at 9-11 cmH2O * Update device * Update supplies as needed * Notify me if snoring with mask or feeling that the pressure is too much or too little * Attempt to lose weight * Call this office if any problems using CPAP * Return for follow up one month after obtaining new device, or sooner if concerns arise Counseling Topics: Spare mask, Weight loss health impact Visit Type: In Office Time Spent with Patient (minutes): 22 Provider Statement: I spent 100% of the Face to Face Visit with the patient with greater than 50% spent counseling the patient and coordination of care.
== END 2020-12-06 08:13 | disposition home or self-care (01) ==
LOC: SC 08:12
PROVIDERS: ATTEND Nurse Practitioner Family
DX: G47.33 Obstructive sleep apnea (adult) (pediatric) (principal)
CPT/HCPCS: 99213; G0463; 99212

== ENCOUNTER 2020-12-28 08:00 | Outpatient (CLI) | payer MEDICARE, OTHER | END 2020-12-28 23:59 | disposition home or self-care (01) | LOC: LAB.N 08:00 | PROVIDERS: ATTEND Family Medicine | DX: Z79.01 Long term (current) use of anticoagulants (principal); I48.0 Paroxysmal atrial fibrillation ==

== ENCOUNTER 2021-01-30 08:00 | Outpatient (CLI) | payer MEDICARE, OTHER | END 2021-01-30 23:59 | disposition home or self-care (01) | LOC: LAB.WCP 08:00 | PROVIDERS: ATTEND Family Medicine | DX: Z79.01 Long term (current) use of anticoagulants (principal); I48.0 Paroxysmal atrial fibrillation ==

== ENCOUNTER 2022-10-04 17:46 | Emergency (ER) | payer MEDICARE, OTHER ==
--- NOTE | 2022-10-04 18:29 | ED Physician Documentation ---
History of Present Illness - Stated complaint Stated Complaint: CHEST TIGHTNESS - Chief complaint Chief Complaint: Cardiac - Additonal information Additional information: 87-year-old male who has a longstanding history of hypertension, atrial fibrillation status post ablation currently with pacer in place presents to the emergency department for evaluation of chest pain. He describes it more as pressure-like and a tightness in his chest though it does radiate between his scapula posteriorly. No cough no fevers. He has taken Tylenol without relief of pain. He is followed by [facility] senior loan processor Dr. Benoit. Currently anticoagulated with Coumadin. Meds: Sotalol, statin, Flomax, Coumadin, montekulast Review of Systems Constitutional: reports: Reviewed and negative Cardiac: reports: Chest pain / pressure Respiratory: reports: Reviewed and negative GI: reports: Reviewed and negative PD PAST MEDICAL HISTORY - Past Medical History Cardiovascular: Hypertension, High cholesterol, Atrial fibrillation - Past Surgical History Past Surgical History: Yes Ortho: Hip replacement, Rotator cuff repair - Present Medications Home Medications: Ambulatory Orders Medication Instructions Recorded Confirmed Rosuvastatin Calcium [Crestor] 10 mg PO DAILY 09/24/14 10/04/22 Tamsulosin [Flomax] 0.4 mg PO DAILY 09/24/14 10/04/22 Warfarin [Coumadin] 5 mg PO DAILY 11/16/15 10/04/22 Montelukast [Singulair] 10 mg PO DAILY 10/04/22 10/04/22 Sotalol HCl [Betapace AF] 160 mg PO DAILY 10/04/22 10/04/22 - Allergies Allergies/Adverse Reactions: Allergies Allergy/AdvReac Type Severity Reaction Status Date / Time naproxen sodium * Allergy Itching Verified 10/04/22 17:50 [From Aleve] - Social History Does the pt smoke?: No Smoking Status: Never smoker Does the pt drink ETOH?: Yes Does the pt have substance abuse?: No Results - Vitals Vitals: Vital Signs - 24 hr 10/04/22 10/04/22 10/04/22 17:51 19:42 20:36 Temperature 36.5 C Heart Rate 90 65 65 Respiratory 16 17 16 Rate Blood Pressure 170/90 H 158/82 H 160/74 H O2 Saturation 99 97 97 10/04/22 10/04/22 20:43 21:30 Temperature Heart Rate 65 67 Respiratory 17 16 Rate Blood Pressure 137/75 H 137/75 H O2 Saturation 100 95 Oxygen O2 Source Room air - EKG (time done) 1757 EKG releavant findings:: EKG personally interpreted by author of this note. Relevant findings are: Rate: Rate (enter#) (65) Rhythm: Paced (Atrial paced) Intervals: LBBB Computer interpretation: Agree with computer - Labs Labs: Laboratory Tests 10/04/22 10/04/22 10/04/22 18:18 18:18 18:18 WBC 10.5 RBC 4.27 L Hgb 13.5 L Hct 40.9 L MCV 95.8 H MCH 31.6 H MCHC 33.0 RDW 13.9 Plt Count 233 MPV 11.3 Neut # (Auto) 7.7 H Lymph # (Auto) 1.5 [place] # (Auto) 0.9 Eos # (Auto) 0.4 Baso # (Auto) 0.1 Absolute Nucleated RBC 0.00 Nucleated RBC % 0.0 PT INR Sodium 139 Potassium 4.5 Chloride 106 Carbon Dioxide 27 Anion Gap 6.0 BUN 27 H Creatinine 0.9 Estimated GFR (MDRD) 80 L Glucose 101 H Calcium 9.3 Total Bilirubin 0.7 AST 24 ALT 33 Alkaline Phosphatase 61 Troponin I High Sens 10.5 Total Protein 6.9 Albumin 4.0 Globulin 2.9 Albumin/Globulin Ratio 1.4 Lipase 26 10/04/22 10/04/22 18:18 19:56 WBC RBC Hgb Hct MCV MCH MCHC RDW Plt Count MPV Neut # (Auto) Lymph # (Auto) [place] # (Auto) Eos # (Auto) Baso # (Auto) Absolute Nucleated RBC Nucleated RBC % PT 30.3 H INR 3.0 H Sodium Potassium Chloride Carbon Dioxide Anion Gap BUN Creatinine Estimated GFR (MDRD) Glucose Calcium Total Bilirubin AST ALT Alkaline Phosphatase Troponin I High Sens 11.4 Total Protein Albumin Globulin Albumin/Globulin Ratio Lipase - Rads (name of study) angio chest Relevant Findings:: Final report received (No acute aortic syndrome identified. Coronary, cardiac annular and atherosclerotic calcifications are present. Suspect infectious inflammatory nodules are present in the lungs. There are also prominent mediastinal lymph nodes which may be reactive.) cxr Relevant Findings:: Final report received (Mild diffuse interstitial prominence with cardiomegaly. Findings may represent early mild pulmonary edema or CHF. Infectious or inflammatory process not excluded. No focal consolidation identified) PD Medical Decision Making - ED course Complexity details: reviewed results, re-evaluated patient, considered differential, d/w patient ED course: 87-year-old male who has a history of atrial fibrillation, Status post ablation, Status post pacer, anticoagulated on Coumadin Presented to the emergency department for evaluation of chest pain at rest with radiation to his posterior scapula. He has had no fevers or cough. No nausea or vomiting. He states that he has never had a pain similar to this. On presentation to the ER he is alert and well-appearing. No focal neurodeficits. His EKG does show a paced rhythm. I initially obtained CBC, electrolytes and high-sensitivity troponin x2. Per my interpretation no acute findings. His INR today is 3, Appropriate in the setting of Coumadin administration. Because of the presentation with hypertension as well as reported chest pain that radiated to his back a CT angiogram of the chest was completed to rule out aortic dissection. As interpreted by the radiologist the CT was negative. Patient was administered a single dose of nitroglycerin orally which successfully dropped his chest pain from a 6 to a 2. This gave concern for possible angina at rest. Subsequently I spoke with Dr. Leblanc senior loan processor on-call at [facility] who recommended the patient be transferred for an ischemic evaluation. Though the patient's cardiology team is through [facility], they are not able to accept the patient in transfer due to a full hospital census. Subsequently we will reach out to other outlying hospitals for the possibility of transfer for further ischemic work-up. I discussed the plan and findings with the patient and his son at the bedside and they are in agreement. 2215: I have spoken with Dr. Kelly Boyle hospitalist at [facility] in [place]. She agrees to accept the patient in transfer for evaluation of his persistent chest pain at rest improving with nitroglycerin concerning for angina. I have notified patient of plan to transfer he is in agreement. Second dose of nitroglycerin has been ordered. Appropriate COBRA paperwork completed. 2215: Pt is signed out to my night time colleague Dr. Chaves to /u on any event pending transer Departure - Departure Disposition: 02 Transfer Acute Care Hosp Clinical Impression: Angina at rest Chest pain Qualifiers: Chest pain type: unspecified Qualified Code(s): R07.9 - Chest pain, unspecified Condition: Stable Record reviewed to determine appropriate education?: Yes
[2022-10-04 18:30] LABS: BASOPHILS # (AUTO) 0.1 10^3/uL (0.0-0.1); BASOPHILS % (AUTO) 0.7 %; EOSINOPHILS # (AUTO) 0.4 10^3/uL (0.0-0.7); EOSINOPHILS % (AUTO) 3.3 %; HCT - HEMATOCRIT 40.9 % (42.0-52.0); HGB - HEMOGLOBIN 13.5 g/dL (14.0-18.0); LYMPHOCYTES # (AUTO) 1.5 10^3/uL (1.5-3.5); LYMPHOCYTES % (AUTO) 13.9 %; MEAN CORPUSCULAR HEMOGLOBIN 31.6 pg (27.0-31.0); MEAN CORPUSCULAR VOLUME 95.8 fL (80.0-94.0); MEAN PLATELET VOLUME 11.3 fL (7.4-11.4); MONOCYTES # (AUTO) 0.9 10^3/uL (0.0-1.0); MONOCYTES % (AUTO) 8.7 %; NEUTROPHILS # (AUTO) 7.7 10^3/uL (1.5-6.6); NEUTROPHILS % (AUTO) 73.1 %; PLT - PLATELET COUNT 233 10^3/uL (130-450); RED BLOOD COUNT 4.27 10^6/uL (4.70-6.10); RED CELL DISTRIBUTION WIDTH 13.9 % (12.0-15.0); WHITE BLOOD COUNT 10.5 x10^3/uL (4.8-10.8)
[2022-10-04 18:38] LABS: PT - PROTHROMBIN TIME 30.3 secs (9.9-12.6)
[2022-10-04 18:43] LABS: ALBUMIN/GLOBULIN RATIO 1.4 (1.0-2.2); BILIRUBIN,TOTAL 0.7 mg/dL (0.2-1.0); CALCIUM 9.3 mg/dL (8.5-10.3); CREATININE 0.9 mg/dL (0.6-1.2); POTASSIUM 4.5 mmol/L (3.5-5.0); TOTAL PROTEIN 6.9 g/dL (6.7-8.2)
[2022-10-04] MEDS ORDERED: iohexoL-300 100 ML VIAL ONE (18:48)
[2022-10-04] MEDS: iohexoL-300 100 ML VIAL IVP ONE (19:03)
--- NOTE | 2022-10-04 19:40 | CT Report ---
PROCEDURE: ANGIO CHEST W/WO INDICATIONS: chest pain, radiation to back; ?A. dis CONTRAST: 80ml omni 300 TECHNIQUE: After the administration of intravenous contrast, 2 mm axial images were acquired from the pulmonary apices to the posterior costophrenic angles during the arterial phase. In addition, 1 mm lung kernel and 5 mm soft tissue kernel reconstructions were performed. 3-dimensional coronal oblique maximum int ensity projection (MIP) reformats, 8 mm axial MIP, and 5 mm coronal and sagittal MPR reformats were t hen performed through the thorax. For radiation dose reduction, the following was used: automated exp osure control, adjustment of mA and/or kV according to patient size. COMPARISON: Same-day radiograph FINDINGS: Image quality: Degraded by motion and arm at side position. Lungs and pleura:No dense consolidation. Possible basal atelectasis. No pleural effusions. Suspected tiny nodules are present better seen on maximum intensity projection images, clustered in the right p eripheral lung for example. Mediastinum, heart, and esophagus: Atherosclerotic calcifications. The thoracic aorta does not appear dilated. No acute dissection. No intramural hematoma. Cardiomegaly, atherosclerotic, and coronary, and annular calcifications. A left chest wall pulse gene rator with electrode leads are in place. Atrial appendage clip. No central pulmonary embolism. No pathologic lymph nodes by size criteria. There are prominent mediastinal lymph nodes, which may be reactive in this clinical setting, attention on follow-up. Chest wall and thyroid: Chest wall is unremarkable. Thyroid is unremarkable. Upper abdomen: Suspected renal cysts. No gross abnormality on these arterial phase images. Atheroscle rotic abdominal aortic calcifications are present. Bones: No acute or suspicious osseous finding. Partially seen right shoulder arthroplasty. IMPRESSION: No acute aortic syndrome identified. Coronary, cardiac annular, and atherosclerotic calcifications ar e present. Cardiomegaly. Suspected infectious/inflammatory nodules are present in the lungs. There are also prominent mediasti nal lymph nodes, that may be reactive. Consider future imaging surveillance to assess for resolution. Artifact degraded CT. Reviewed by: Mingo Garcia MD on 10/04/2022 7:38 PM PDT Approved by: Mingo Garcia MD on 10/04/2022 7:38 PM PDT Station ID: [id number]
--- NOTE | 2022-10-04 19:57 | XRAY Report ---
PROCEDURE: Chest 1 View X-Ray INDICATIONS: Chest pain TECHNIQUE: One view of the chest was acquired. COMPARISON: 01/14/2016 FINDINGS: Surgical changes and devices: Left-sided cardiac pacemaker. Prior right shoulder arthroplasty. Lungs and pleura: Minimal diffuse interstitial prominence. No focal consolidation. No pneumothorax o r pleural effusion. Mediastinum: Mediastinal contours appear normal. Heart size is enlarged. Bones and chest wall: No suspicious bony lesions. Overlying soft tissues appear unremarkable. IMPRESSION: Minimal diffuse interstitial prominence with cardiomegaly. Findings may represent early/mild pulmonar y edema/CHF although an infectious or inflammatory process not excluded. No focal consolidation ident ified. Reviewed by: Hugh Deleon MD on 10/04/2022 6:56 PM AKMALIA Approved by: Hugh Deleon MD on 10/04/2022 6:56 PM AKDT Station ID: [id number]
[2022-10-04] MEDS: NITROGLYCERIN SL 0.4 MG TABLET SL STA ×2 (20:37→22:20)
[2022-10-05 01:31] VITALS: BP 147/81
== END 2022-10-05 01:34 | disposition short-term general hospital (02) ==
LOC: ED 17:46
DX: I20.9 Angina pectoris, unspecified (principal); R07.9 Chest pain, unspecified; I48.91 Unspecified atrial fibrillation; I10 Essential (primary) hypertension; E78.00 Pure hypercholesterolemia, unspecified; Z79.01 Long term (current) use of anticoagulants; Z79.899 Other long term (current) drug therapy; Z20.822 Contact with and (suspected) exposure to COVID-19
CPT/HCPCS: 36415; 71045; 71275; 80053; 83690; 83880; 84484; 85025; 85610; 87635; 93005; 99284; 99285; A9270; Q9967

== ENCOUNTER 2022-10-21 09:01 | Outpatient (CLI) | payer MEDICARE, OTHER ==
--- NOTE | 2022-10-21 10:44 | XRAY Report ---
PROCEDURE: Chest 2 View X-Ray INDICATIONS: PNEUMONIA TECHNIQUE: 2 views of the chest were acquired. COMPARISON: 10/04/2022 FINDINGS: Surgical changes and devices: Left cardiac pacemaker. Status post right shoulder arthroplasty. Atria l appendage clip is noted. Lungs and pleura: No pleural effusions or pneumothorax. Interval decrease in diffuse interstitial pr ominence. Minimal patchy bibasilar opacities without focal consolidation. Mediastinum: Mediastinal contours appear normal. Heart size is enlarged. Bones and chest wall: No suspicious bony lesions. Overlying soft tissues appear unremarkable. IMPRESSION: Decreased interstitial prominence with persistent patchy bibasilar opacities. No new focal consolidat ion. Findings may represent resolving infectious/inflammatory processes as noted on comparison CT. Co nsider longer interval follow-up imaging as radiographic findings may lag clinical symptoms. Reviewed by: Hugh Deleon MD on 10/21/2022 10:43 AM PDT Approved by: Hugh Deleon MD on 10/21/2022 10:43 AM PDT Station ID: [id number]
== END 2022-10-21 09:02 | disposition home or self-care (01) ==
LOC: DI 09:01
PROVIDERS: ATTEND Physician Assistant Medical
DX: J18.9 Pneumonia, unspecified organism (principal)